=== PATIENT | female | born 1975 | race Caucasian/White ===

== ENCOUNTER 2024-04-16 12:23 | Emergency (ER) | payer BC ==
[~2024-04-16] VITALS: Ht 154.9 cm; Wt 72.6 kg
[2024-04-16 12:23] VITALS: BP_SYST 167; PULSE 88; RESP 17; TEMP 97.1; O2SAT 98
[2024-04-16] MEDS: ASPIRIN 325 MG TABLET PO ONE (12:51)
[2024-04-16 13:01] LABS: BASOPHILS # (AUTO) 0.1 K/uL (0.0-0.2); BASOPHILS % (AUTO) 0.8 % (0.0-2.0); EOSINOPHILS # (AUTO) 0.4 K/uL (0.0-0.4); HEMATOCRIT 35.6 % (36-48); HEMOGLOBIN 11.9 g/dL (12.0-16.0); LYMPHOCYTES # (AUTO) 3.2 K/uL (1.0-5.5); LYMPHOCYTES % (AUTO) 40.3 % (20.5-51.5); MEAN CORPUSCULAR HEMOGLOBIN 29 pg (27-31); MEAN CORPUSCULAR HGB CONC 33 % (32-36); MEAN CORPUSCULAR VOLUME 87 fL (79.0-98.0); MONOCYTES # (AUTO) 0.5 K/uL (0.0-1.0); MONOCYTES % (AUTO) 6.1 % (1.7-9.3); NEUTROPHILS # (AUTO) 3.8 K/uL (1.8-7.7); NEUTROPHILS % (AUTO) 47.8 % (40.0-70.0); PLATELET COUNT (AUTO) 367 K/uL (130-430); RED BLOOD CELL COUNT(AUTO) 4.12 MIL/uL (4.2-6.2); RED CELL DISTRIBUTION WIDTH 13.7 % (9.0-15.0); WHITE BLOOD COUNT (AUTO) 7.9 K/uL (4.8-10.8)
[2024-04-16 13:24] LABS: ANION GAP 9 (5-15); CALCIUM 9.1 mg/dL (8.4-11.0); CARBON DIOXIDE 27 mmol/L (23-29); CHLORIDE 102 mmol/L (98-107); CREATININE 0.74 mg/dL (0.55-1.30); GFR AFRICAN AMERICAN 108 mL/min (>90); GLUCOSE 93 mg/dL (74-106); POTASSIUM 3.6 mmol/L (3.5-5.1); SODIUM SERUM 138 mmol/L (136-145); UREA NITROGEN, BLOOD 9 mg/dL (8-21)
[2024-04-16 13:26] LABS: GFR NON AFRICAN-AMERICAN 89 mL/min (>90)
[2024-04-16] MEDS: KETOROLAC TROMETHAMINE 30 MG VIAL IM ONE (14:45)
== END 2024-04-16 16:33 | disposition home or self-care (01) ==
LOC: SED 12:23
DX: M94.0 Chondrocostal junction syndrome [Tietze] (principal); R07.89 Other chest pain; R06.02 Shortness of breath
CPT/HCPCS: 99285; 71045; 80048; 85025; 84484; 36415; 93005; 96372; J1885

== ENCOUNTER 2024-05-25 10:01 | Emergency (ER) | payer BC ==
[~2024-05-25] VITALS: Ht 167.6 cm; Wt 90.7 kg
[2024-05-25 10:05] VITALS: BP_SYST 155; PULSE 85; RESP 18; TEMP 98.3; O2SAT 98
[2024-05-25 10:34] LABS: ERYTHROCYTE SEDIMENTATION RATE 63 MM/HR (0-20)
[2024-05-25 10:38] LABS: BASOPHILS # (AUTO) 0.1 K/uL (0.0-0.2); BASOPHILS % (AUTO) 0.7 % (0.0-2.0); EOSINOPHILS # (AUTO) 0.6 K/uL (0.0-0.4); EOSINOPHILS % (AUTO) 8.5 % (0.0-4.0); HEMATOCRIT 36.6 % (36-48); LYMPHOCYTES # (AUTO) 3.7 K/uL (1.0-5.5); LYMPHOCYTES % (AUTO) 48.4 % (20.5-51.5); MEAN CORPUSCULAR HEMOGLOBIN 28 pg (27-31); MEAN CORPUSCULAR HGB CONC 33 % (32-36); MEAN CORPUSCULAR VOLUME 86 fL (79.0-98.0); MONOCYTES # (AUTO) 0.6 K/uL (0.0-1.0); MONOCYTES % (AUTO) 7.8 % (1.7-9.3); NEUTROPHILS # (AUTO) 2.6 K/uL (1.8-7.7); NEUTROPHILS % (AUTO) 34.6 % (40.0-70.0); PLATELET COUNT (AUTO) 401 K/uL (130-430); RED BLOOD CELL COUNT(AUTO) 4.28 MIL/uL (4.2-6.2); RED CELL DISTRIBUTION WIDTH 13.4 % (9.0-15.0); WHITE BLOOD COUNT (AUTO) 7.6 K/uL (4.8-10.8)
[2024-05-25] MEDS: METOCLOPRAMIDE HCL 10 MG/2 ML VIAL IVP ONE (10:46)
[2024-05-25] MEDS: DIPHENHYDRAMINE INJ 50 MG/ML VIAL IVP ONE (10:46)
[2024-05-25 10:51] LABS: INR 0.9 (0.8-1.2)
[2024-05-25 11:03] LABS: CALCIUM 9.1 mg/dL (8.4-11.0); CREATININE 0.76 mg/dL (0.55-1.30); POTASSIUM 3.7 mmol/L (3.5-5.1)
[2024-05-25] MEDS ORDERED: TRAM50TA2 PO (11:36)
[2024-05-25] MEDS ORDERED: CLON0.1T PO (11:36)
[2024-05-25 12:55] VITALS: BP_SYST 154; PULSE 92; RESP 16; TEMP 97.2; O2SAT 97
== END 2024-05-25 12:53 | disposition home or self-care (01) ==
LOC: SED 10:01
DX: I10 Essential (primary) hypertension (principal); R51.9 Headache, unspecified; R11.0 Nausea; M54.2 Cervicalgia
CPT/HCPCS: 99285; 96374; 70450; 96375; 80048; 85025; 85610; 85651; 85730; 36415; 81025; 82397; J1200; J2765